=== PATIENT | female | born 1995 | race Caucasian/White ===

== ENCOUNTER 2017-08-21 14:15 | Emergency (ER) | payer OTHER | END 2017-08-21 16:28 | disposition home or self-care (01) | LOC: M ED 14:15 | DX: O99.712 Diseases of the skin and subcutaneous tissue complicating pregnancy, second trimester (principal); L90.5 Scar conditions and fibrosis of skin; Z3A.21 21 weeks gestation of pregnancy | CPT/HCPCS: 99283 ==